=== PATIENT | male | born 1935 | race Caucasian/White ===

== ENCOUNTER → 2017-11-03 | Outpatient (CLI) | payer OTHER ==
[~2017-11-03] MED LIST: ALEVE220 M1; ALL DAY ALLERGY10 M3 PO; AMBIEN 10 MG TA10 MG; ASPIR 8181 MG PO; ATORVASTATIN CA40 MG PO; CIPRO HC OTIC S10 ML OTIC; CLONAZEPAM 0.50.5 M1 PO; COLCHICINE0.6 MG PO; ELIQUIS5 MG PO; FLECAINIDE ACET50 M1 PO; FLOMAX0.4 MG PO; LISINOPRIL5 MG PO; LOPRESSOR25 PO; NORCO 5-325 TA1 EACH PO; PROPAFENONE 15150 MG PO
== END ==
LOC: M.RAD 11:24
DX: M25.511 Pain in right shoulder (principal)

== ENCOUNTER → 2018-07-29 | Outpatient (CLI) | payer OTHER ==
[2018-07-29 10:31] LABS: CREATININE 1.3 mg/dL (0.6-1.3)
== END ==
LOC: M.LAB 10:00 → M.CT 10:00
PROVIDERS: Surgery Vascular Surgery
DX: I65.23 Occlusion and stenosis of bilateral carotid arteries (principal)

== ENCOUNTER 2020-04-04 07:19 | Observation (INO) | payer OTHER ==
[~2020-04-04] VITALS: Ht 182.9 cm; Wt 84.6 kg
--- NOTE | ~2020-04-04 | CON ---
[address] [address] CONSULTATION Name: JUSTINE SANDOVAL Room: [place] [address] ADM IN M.R.#: [id number] Admission: 04/04/20 Attend Phys: Caroline Cowan Discharge: Date of : 39 Report #: [id number] THIS REPORT FOR: //name// cc: Jamal Estes MD, David L. MD ~ THIS REPORT FOR: //name// CC: Jamal Winkler DATE OF SERVICE: 04/04/2020 HISTORY OF PRESENT ILLNESS: This is an 84-year-old male patient who was evaluated by me for any neurological etiology for the patient's dizziness. This patient gives a history that his dizziness started spontaneously. There was no trauma involved with it. He does have a prior history of carotid stent and he has atrial fibrillation, which appeared to be paroxysmal. He is anticoagulated chronically. He feels that he may be somewhat better, but he is not totally certain about it. REVIEW OF SYSTEMS: Indicate that this patient has a history of atrial fibrillation. He does drink alcohol. He has a history of carotid disease. He has dizziness of unknown cause. That was his relevant 14-point review of system. PAST MEDICAL HISTORY: Positive for atrial fibrillation. FAMILY HISTORY: Unremarkable. SOCIAL HISTORY: He does drink alcohol. PHYSICAL EXAMINATION: Indicate he is alert, responsive, able to follow simple and complex command. Cranial nerve examination does not appear to be showing much abnormality. He moves all 4 extremities. There is no cerebellar sign. There is no carotid bruit. There is no meningeal sign. His heart looks unremarkable. Blood pressure is 144/69, respirations 16, pulse is 92. LABORATORY DATA: Indicated white count of 4.7. Imaging studies shows a stable left carotid stenosis; I do not know whether it has been addressed in the past or not, but his MRI of the brain does not show any problem with the brain. IMPRESSION: It is unlikely there is any neurological etiology for the patient's dizziness. Probably ENT pathology should be considered. We will get an echocardiogram done to exclude any other pathology. [place] [address] CONSULTATION Name: JUSTINE SANDOVAL Room: [address] IN [facility].#: [id number] Admission: 04/04/20 Attend Phys: Caroline Cowan Discharge: Date of : 39 Report #: [id number] need to be addressed, but need to be addressed as an outpatient because it is asymptomatic. Dr. Heard will follow up this patient with you tomorrow, but his dizziness appears to have improved and it does look like it is from any neurological etiology. By: 07 Ppreeti Valenzuela MD /nt
[~2020-04-04 07:19] MED LIST changes: -ATORVASTATIN CA40 MG PO; +LIPITOR 20 MG T20 M1 PO
[2020-04-04 07:20] VITALS: BP 162/43
[2020-04-04] MEDS ORDERED: COUMADIN 4 MG TA4 M1 PO (07:25)
[2020-04-04 08:16] LABS: ABSOLUTE EOSINOPHILS 0.1 thou/uL (0.0-0.7); ABSOLUTE LYMPHOCYTES 1.2 thou/uL (0.8-5.3); ABSOLUTE MONOCYTES 0.5 thou/uL (0.0-1.2); ABSOLUTE NEUTROPHILS 2.9 thou/uL (1.6-8.1); BASOPHILS 0.9 %; EOSINOPHILS 2.9 %; HEMATOCRIT 40.6 % (42.0-52.0); HEMOGLOBIN 13.8 gm/dL (14.0-18.0); LYMPHOCYTES 24.9 %; MCH 32.3 pg (26.0-34.0); MCV 95.2 fL (80.0-100.0); MONOCYTES 9.9 %; MPV 8.6 fl. (7.2-11.1); NUCLEATED RBCS 0 /100WBC; PLATELET COUNT* 199 thou/uL (150-400); POLYS 61.4 %; RBC 4.26 mil/uL (4.50-6.00); RDW-CV 14.8 % (10.5-14.5); WBC 4.7 thou/uL (4.0-11.0)
[2020-04-04 08:24] LABS: CALCIUM 8.5 mg/dL (8.5-10.1); CREATININE 1.2 mg/dL (0.6-1.3); POTASSIUM 3.9 mmol/L (3.5-5.1)
[2020-04-04 08:26] LABS: APTT 39.7 Seconds (25.0-31.3); INR 2.6; PROTIME 25.7 Seconds (9.20-11.50)
[2020-04-04 08:29] LABS: ALBUMIN 3.9 g/dL (3.4-5.0); TOTAL BILIRUBIN 1.1 mg/dL (<0.1-1.0); TOTAL PROTEIN 7.5 g/dL (6.4-8.2)
--- NOTE | 2020-04-04 08:31 | EKG ---
[place] [address] ELECTROCARDIOGRAM REPORT Name: JUSTINE SANDOVAL Room: [facility]#: [id number] Admission: 04/04/20 Attend Phys: Discharge: Date of : 39 Date of Service: 04/04/20718 Report #: [id number] THIS REPORT FOR: //name// [facility] ED Test Date: 2020-04-04 Test Time: 07:19:49 Pat Name: JUSTINE SANDOVAL Department: Room: Gender: Electronic Wirer: [place] : 1935 Requested By: Ana Kendrick Order Number: [id number] MD: Cesar Mullins Measurements Intervals [place] Rate: 77 P: 60 IA: 167 QRS: 35 QRSD: 104 T: 24 QT: 469 QTc: 531 Interpretive Statements Sinus rhythm Ventricular bigeminy Compared to ECG 07/19/2017 08:00:12 Ventricular premature complex(es) now present T-wave abnormality no longer present Electronically Signed On 04-04-2020 8:29:28 CDT by Cesar Mullins [email or web address] <ELECTRONICALLY SIGNED> By: Cesar Mullins MD, FACC 04/04/20 0829 8 8 Cesar Mullins MD, [facility] /EPI
[2020-04-04 11:46] VITALS: BP 151/74
[2020-04-04] MEDS ORDERED: COUMADIN6 MG PO (13:34)
[2020-04-04] MEDS ORDERED: MELATONIN5 MG SUBLING (13:37)
[2020-04-04] MEDS ORDERED: COLACE100 MG PO (13:38)
[2020-04-04] MEDS ORDERED: TYLENOL PM PO (13:39)
--- NOTE | 2020-04-04 14:06 | NUR ---
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, TRACING SR- PT A&O X4- CONT OF BOWEL AND BLADDER WITH NOTED PROSTATE PROBLMES WITH HESITACY NOTED- VS 97.6 18 159/74 66 94% ON RA- ASSIST X1 WITH AMB R/T DIZZINESS, UNSTEADY GAIT- LCTA, DIMINISHED IN BASES- ABD SOFT/ROUND/NON-TENDER, BS X4 QUADS- LAST BM REPORTED 04/03/20- FIELD STICK IV NOTED INTACT TO LEFT FA, IVF INFUSSING PRESCIBED- SLIGHT TREMOR NOTED- PT REPORTS TO DRINK 3 BEERS DAILY- BRUISING/SCABS/ AND SCARS NOTED- WALLET NOTED AT TIME OF ADMSSION AND TO BE PLACED WITH SECURITY- NEURO CONSULT NOTED- MRI ORDERED AND COMPLETED THIS SHIFT, RESULTS PENDING- PT DENIES ANY C/O PAIN/DISCOMFORT AT THIS TIME- CALL LIGHT AND PERSONAL BELONGINGS WITH IN REACH- HOURLY ROUNDS IN PLACE R/T SAFETY/NEEDS- ALL NEEDS MET AT THIS TIME-TM
[2020-04-04 16:58] VITALS: BP 144/69
[2020-04-04 20:00] VITALS: BP 111/71
[2020-04-05] VITALS: BP 146/71
[2020-04-05 03:08] LABS: GLYCOHEMOGLOBIN (HGB A1C) 5.7 % (4.8-5.6)
[2020-04-05 04:00] VITALS: BP 105/69
[2020-04-05 04:50] LABS: INR 2.8; PROTIME 27.5 Seconds (9.20-11.50)
--- NOTE | 2020-04-05 06:13 | NUR ---
ASSUMED CARE OF PT 04/04/20 AT APPROX 1930. PT A&OX4, ON ROOM AIR, VSS. MED FOR INSOMIA REQUESTED - PHYSICIAN CONTACTED AND ORDER GIVEN FOR MELATONIN. NO OTHER COMPLAINTS THIS SHIFT. WILL CONTINUE TO MONITOR.
[2020-04-05 12:00] VITALS: BP 153/78
--- NOTE | 2020-04-05 13:53 | 2DMMODE ---
[place] [address] 2 D/M-MODE ECHOCARDIOGRAM Name: SANDOVALJUSTINE Room: [address] [place]#: [id number] Admission: 04/04/20 Attend Phys: Otilia Winkler Discharge: Date of : 39 Date of Service: 04/05/20 1351 Report #: [id number] THIS REPORT FOR: cc: Jamal Estes MD, David L. MD Blick, David R. MD [facility] ~ APPROVED REPORT Study performed: 04/05/2020 10:12:11 EXAM: Comprehensive 2D, Doppler, and color-flow Echocardiogram Patient Location: In-Patient BSA: 2.07 HR: 54 bpm BP: 105/69 mmHg Other Information Study Quality: Good Indications Dizziness and Vertigo 2D Dimensions IVSd: 11.65 (7-11mm) LVOT Diam: 24.07 (18-24mm) LVDd: 42.88 mm PWd: 11.17 (7-11mm) Ascending Ao: 35.49 (22-36mm) LVDs: 28.00 (25-40mm) Aortic Root: 34.49 mm Volumes Left Atrial Volume (Systole) LA ESV Index: 21.70 mL/m2 Aortic Valve AoV Peak Won.: 1.16 m/s AO Peak Gr.: 5.42 mmHg LVOT Max P.22 mmHg AO Mean Gr.: 3.07 mmHg LVOT Mean P.93 mmHg LVOT Max V: 1.03 m/s AO V2 VTI: 25.75 cm LVOT Mean V: 0.63 m/s FADI (VTI): 4.17 cm2 LVOT V1 VTI: 23.58 cm Mitral Valve E/A Ratio: 0.61 [place] [address] 2 D/M-MODE ECHOCARDIOGRAM Name: JUSTINE SANDOVAL Room: [address] [facility]#: [id number] Admission: 04/04/20 Attend Phys: Otilia Winkler Discharge: Date of : 39 Date of Service: 04/05/20 1351 Report #: [id number] MV Decel. Time: 327.37 ms MV E Max Won.: 0.64 m/s MV PHT: 94.94 ms MVA (PHT): 2.32 cm2 TDI E/Lateral E': 8.00 E/Medial E': 9.14 Medial E' Won.: 0.07 m/s Lateral E' Won.: 0.08 m/s Pulmonary Valve PV Peak Won.: 0.93 m/s PV Peak Gr.: 3.48 mmHg Tricuspid Valve RAP Estimate: 5.00 mmHg TR Peak Gr.: 23.43 mmHg RVSP: 28.43 mmHg PA Pressure: 28.43 mmHg Left Ventricle The left ventricle is normal size. There is normal LV segmental wall motion. Mild concentric left ventricular hypertrophy. Left ventricular systolic function is normal. The left ventricular ejection fraction is within the normal range. LVEF is 60-65%. Grade I - abnormal relaxation pattern. Right Ventricle The right ventricle is normal size. The right ventricular systolic function is normal. Atria The left atrium size is normal. The right atrium size is normal. Aortic Valve The Aortic valve is sclerotic. No aortic regurgitation is present. There is no aortic valvular stenosis. Mitral Valve There is mitral annular calcification. There is no mitral valve regurgitation noted. No evidence of mitral valve stenosis. Tricuspid Valve The tricuspid valve is normal in structure. Trace tricuspid regurgitation. estimated pa pressure 30 [place] [address] 2 D/M-MODE ECHOCARDIOGRAM Name: JUSTINE SANDOVAL Ness [address] [id number] Admission: 04/04/20 Attend Phys: Otilia Winkler Discharge: Date of : 39 Date of Service: 04/05/20 1351 Report #: [id number] The pulmonary valve is normal in structure. Trace pulmonic regurgitation. Great Vessels The aortic root is normal in size. IVC is normal in size and collapses >50% with inspiration. Pericardium There is no pericardial effusion. <Conclusion> Mild concentric left ventricular hypertrophy. LVEF is 60-65%. The Aortic valve is sclerotic. <ELECTRONICALLY SIGNED> By: Jamal Maldonado MD, [facility] 04/05/20 1351 1351 1351 Jamal Maldonado MD, FACC /INF
[2020-04-05 16:49] VITALS: BP 153/78
[2020-04-05] MEDS ORDERED: COUMADIN6 MG PO (16:49)
[2020-04-05 17:57] VITALS: BP 162/75
== END 2020-04-05 18:35 | disposition home or self-care (01) ==
LOC: M.ERS 07:19 → M.TBA-ER 10:27 → M.2W 10:27
PROVIDERS: Internal Medicine; Personal Emergency Response Attendant; ADMIT Internal Medicine
DX: R42 Dizziness and giddiness (principal); I10 Essential (primary) hypertension; R35.8 Other polyuria; E11.9 Type 2 diabetes mellitus without complications; D68.59 Other primary thrombophilia; Z79.01 Long term (current) use of anticoagulants; I48.91 Unspecified atrial fibrillation; I65.22 Occlusion and stenosis of left carotid artery

== ENCOUNTER → 2020-09-25 | Outpatient (CLI) | payer OTHER ==
[~2020-09-25] MED LIST changes: +COLACE100 MG PO; +COUMADIN 4 MG TA4 M1 PO; +COUMADIN6 MG PO; +MELATONIN5 MG SUBLING; +TYLENOL PM PO
== END ==
LOC: M.RAD 10:11
PROVIDERS: ATTEND Internal Medicine
DX: J98.4 Other disorders of lung (principal)

== ENCOUNTER → 2021-12-25 | Outpatient (CLI) | payer OTHER ==
[2021-12-25 14:22] LABS: INR 2.2; PROTIME 22.4 Seconds (9.20-11.50)
== END ==
LOC: M.LAB 13:55
PROVIDERS: ATTEND Internal Medicine Cardiovascular Disease
DX: I48.0 Paroxysmal atrial fibrillation (principal); Z86.73 Personal history of transient ischemic attack (TIA), and cerebral infarction without residual deficits